=== PATIENT | male | born 1960 | race Caucasian/White ===

== ENCOUNTER 2016-08-27 10:55 | Day surgery (SDC) | payer MEDICARE ==
[~2016-08-27] VITALS: Ht 170.2 cm; Wt 83.0 kg
[~2016-08-27 10:55] MED LIST: 0.9% Sodium Chloride 1,000 ML IV PRN; ATOR20TA PO; LISI10TA PO; NIAC100045 PO; OXYC500S PO; Sodium Chloride LOK Flush 10 mL Syringe IV PRN; fentaNYL-PF 50 mCg/mL 2 mL Inj IVPUSH PRN
[2016-08-27 11:29] VITALS: BP 112/75; PULSE 82; RESP 16; O2SAT 96
[2016-08-27 12:19] VITALS: BP 104/71; PULSE 70; RESP 16; O2SAT 94
--- NOTE | 2016-08-27 12:20 | PCM.ENDCOL ---
Colonoscopy Date of Service: Aug 27, 2016 Physician Meño Spangler MD Pre Procedure Diagnosis: Screening fresh blood in the stools Post Procedure Dx & Findings: Polyps hemorrhoids diverticula Procedure Colonoscopy Prep poor Withdrawal 10 minutes PROCEDURE IN DETAIL: After unremarkable rectal examination Olympus video colonoscope was inserted patient's anal canal and was masses cecum. Landmarks are identified including the ileocecal valve and the appendiceal orifice. Scope was drawn systematically. The colonic mucosa visualization was significantly compromised due to the prep. However we were able to see some small polyps. The prep did improve as we move to the left side of the colon. He did not spit his prep. The mucosa of the cecum, ascending, transverse, descending, sigmoid, rectal mucosa lined with whitish, pink, smooth, glistening, normal-appearing mucosa, normal fine branching, underlying vascularity, normal haustra. The patient tolerated procedure and was transported to observation area. In the ascending colon, there was a 2 mm polyp which was removed completely using cold snare. In the transverse colon there was a 1 mm polyp which was removed completely using cold forceps. In the descending colon there was a 2 mm polyp which was removed completely using cold snare. In the sigmoid colon there was a 3 mm polyp which was removed completely with cold snare. In the sigmoid colon, there are a few small to medium-sized diverticula. In the rectum retroflexion was done which showed hemorrhoids and a canals inspected carefully on the way out and hemorrhoids noted. Impression Polyp 4 status post complete removal Hemorrhoids Diverticula Did not spit his prep and poor prep Recommendation Repeat colonoscopy 6 month and asked to follow the prep instructions. Diverticular diet Presedation Assessment Risks and Benefits Informed consent was obtained from the patient after all risks and benefits including but not limited to drug reaction, infection, pain, bleeding, perforation, as well as alternatives were discussed. Patient monitoring Continuous pulse oximetry, cardiac monitoring, blood pressure monitoring, IV access, and oxygen at 2L per nasal cannula. Periprocedural Fentanyl: Fentanyl 125mcg Incrementally Midazolam: Midazolam 6mg Incrementally Complications There were no periprocedural complications identified. Post Procedure Plan Post Procedure Recommendations 1. Restrict activities today. 2. Resume normal activities in the morning. 3. Resume medications. 4. Patient informed of normal post procedure side effects as bloating, drowsiness, blood streaking in the stool. 5. average risk CRCS. If colon polyps come back as: -Hyperplastic- can repeat colonoscopy in 10 years -Tubular adenoma- repeat colonoscopy in 5 years -Tubulovillous/villous adenoma- repeat colonoscopy in 3 years -If any dysplasia- return to clinic as soon as possible 6. Please don't hesitate to call me with any questions. Meño Spangler MD Aug 27, 2016 12:20
[2016-08-27 12:21] VITALS: BP 104/71; PULSE 77; RESP 14; O2SAT 94
[2016-08-27 12:36] VITALS: BP 114/71; PULSE 64; RESP 12; O2SAT 98
[2016-08-27 12:39] VITALS: BP 118/90; PULSE 80; RESP 14; O2SAT 99
--- NOTE | 2016-08-28 12:43 | PATH ---
SURGICAL PATHOLOGY Attending Physician:Meño Spangler M.D. CASE STATUS: Signed Out PATIENT NAME: MAX JENNINGS PID: [id number] : 1960 DATE COLLECTED:08/27/2016 20:15 SPECIMEN: 1: Colon, Biopsy 2: Colon, Biopsy 3: Colon, Biopsy 4: Colon, Biopsy CLINICAL HISTORY: 1). ASCENDING COLON POLYP X1 2). TRANSVERSE COLON POLYP X1 3). DESCENDING COLON POLYP X1 4). SIGMOID POLYP X1 FINAL DIAGNOSIS: 1.ASCENDING COLON POLYP: TUBULAR ADENOMA. 2.TRANSVERSE COLON POLYP: SERRATED LESION, FAVOR HYPERPLASTIC POLYP, INVOLVING SINGLE BIOPSY FRAGMENT. 3.DESCENDING COLON POLYP: TUBULAR ADENOMA. 4.SIGMOID POLYP: TUBULAR ADENOMA. ICD10 CODE D12.2 GROSS DESCRIPTION: The specimen is received in four formalin filled containers labeled with the patient's name. 1). The specimen is sublabeled "ascending colon polyp x1" and consists of a 0.3-0.3 x 0.2 CM portion of tissue which is entirely submitted in cassette 1A. 2). The specimen is sublabeled "transverse colon polyp x1" and consists of 2 portions of tissue which aggregate to 0.3 x 0.3 x 0.2 CM. The specimen is entirely submitted in cassette 2A. 3). The specimen is sublabeled "descending colon polyp x1" and consists of a 0.5 x 0.4 x 0.3 CM portion of tissue which is entirely submitted in cassette 3A. 4). The specimen is sublabeled "sigmoid polyp x1" and consists of a 0.5 x 0.4 x 0.4 CM portion of tissue which is entirely submitted in cassette 4A. 08/27/2016 DAC MICRO DESCRIPTION: See diagnosis. ICD-9 CODES: CPT CODES: 1: 04595 2: 41682 3: 55479 4: 69699 Electronically Signed Out Rinku Cast MD [facility] Pathology [facility], [place] [address] Technical component performed at [facility], [address], [place], [address]
== END 2016-08-27 23:59 | disposition home or self-care (01) ==
LOC: END 10:55
PROVIDERS: ATTEND Internal Medicine
DX: K92.1 Melena (principal); D12.2 Benign neoplasm of ascending colon; D12.4 Benign neoplasm of descending colon; D12.5 Benign neoplasm of sigmoid colon; K63.5 Polyp of colon; K57.30 Diverticulosis of large intestine without perforation or abscess without bleeding; K64.9 Unspecified hemorrhoids; I10 Essential (primary) hypertension; E78.5 Hyperlipidemia, unspecified; J30.9 Allergic rhinitis, unspecified; E78.00 Pure hypercholesterolemia, unspecified; F17.210 Nicotine dependence, cigarettes, uncomplicated; Z79.891 Long term (current) use of opiate analgesic
CPT/HCPCS: 45380; 45385; 88305; 99153; G0500; J2250; J3010; J7030